=== PATIENT | female | born 1955 | race Hispanic/Latino ===

== ENCOUNTER 2018-06-30 06:07 | Day surgery (SDC) | payer BC ==
[2018-06-18 11:31] VITALS: BMI 21.9
[2018-06-30 06:32] VITALS: RESP 20
[2018-06-30] MEDS ORDERED: Propofol 10 mg/ml Inj (20 ML) ONE (07:04)
[2018-06-30] MEDS ORDERED: Phenylephrine 10 mg/ml Inj ONE (07:04)
[2018-06-30] MEDS ORDERED: Rocuronium 10 mg/ml (5 ml) ONE (07:04)
[2018-06-30] MEDS ORDERED: Lidocaine 4% (Laryng-O-Jet) Kit MM ONE (07:04)
[2018-06-30] MEDS ORDERED: Succinylcholine 200 mg/10 ml Inj IV ONE (07:04)
[2018-06-30] MEDS ORDERED: Midazolam 2 MG/2 ML VIAL ONE (07:04)
--- NOTE | 2018-06-30 07:12 | CP.SDSHP ---
Same Day Surgery H & P - History Proposed Procedure: Right shoulder arthroscopy, possible rotator cuff repair, acromioplasty, related procedures Pre-Op Diagnosis: Right shoulder full thickness supraspinatous tear, AC joint arthritis - Previous Medical/Surgical History Cardiac: Hypertension Pulmonary: Asthma Comments: GERD Previous Surgical History: tonsilectomy - Allergies Allergies: Allergies No Known Allergies Allergy (Verified 06/18/18 11:31) - Physical Exam Vital Signs: Vital Signs 06/30/18 06/30/18 06:30 06:33 Temperature 97.8 F Pulse Rate 75 75 Respiratory 20 Rate Blood Pressure 142/93 H O2 Sat by Pulse 100 Oximetry Mental Status: Alert & Oriented x3 Heart: WNL Lungs: WNL GI: WNL (medical and cardiology H&P and clearance on chart, reviewed) - {Optional Preform as Required} Ortho: Other (+radial pulse, sensation intact, limited ROM shoulder) Other Pertinent Findings: MRI on chart. full thickness anterior supraspinatues, mod tendinopathy of infraspinatous, intact biceps tendon, mod AC OA, downsloping distal acromion, bone spurs. [place] [employer] patient report reviewed, no CDS. Patient counseled on the risks of addiction, physical or psychological dependence, and overdose associated with opioid drugs and the danger of taking opioid drugs with alcohol and other central nervous system depressants, and cautioned patient on storage and disposal. - Impression Impression: 63F RHD with right shoulder RC tear after fallJanuary 2018 failed conservative mgmt and elected for arthroscopy Pt. Evaluated Today:Candidate for Anesthesia & Procedure: Yes - Date & Time Date: 06/30/18 Time: 07:13 Short Stay Discharge - Short Stay Discharge Admitting Diagnosis/Reason for Visit: M75.101/ M25.511/ M75.41/ Disposition: HOME/ ROUTINE
[2018-06-30] MEDS ORDERED: Ropivacaine 0.5% 30ML IV ONE (07:20)
[2018-06-30] MEDS ORDERED: EPINEPHrine 1:1000 Nasal Sol(30mL) ONE (07:42)
[2018-06-30] MEDS ORDERED: Bacitracin Ointment 30 GM TUBE ONE (07:43)
[2018-06-30] MEDS ORDERED: Lidocaine 2% w Epi 1:100,000 Inj IJ ONE (07:43)
[2018-06-30] MEDS ORDERED: Lactated Ringer's 1,000 ML IV ONE (08:00)
[2018-06-30] MEDS: Lidocaine 1% Inj (20ml) ONE ×2 (08:13→09:00)
[2018-06-30] MEDS ORDERED: Sodium Chloride 0.9% 10 ML IV ONE (08:34)
[2018-06-30] MEDS ORDERED: Dexamethasone 4 mg/1 ml ONE (08:37)
[2018-06-30] MEDS ORDERED: Neostigmine 1:1000 (1 mg/ml) Inj ONE (09:07)
[2018-06-30] MEDS ORDERED: Morphine 4 MG/ML VIAL IVP PRN (11:22)
[2018-06-30] MEDS ORDERED: Oxycodone/Acetaminophen 5/325 mg Tab PO PRN ×2 (11:22)
[2018-06-30] MEDS ORDERED: Dexamethasone 4 mg/1 ml IVP PRN (11:54)
[2018-06-30] MEDS ORDERED: HYDROmorphone 0.5 mg/0.5 ml ISec IVP PRN (11:54)
--- NOTE | 2018-06-30 11:57 | PCM.ANESB1 ---
Interscalene Block - Brachial Plexus Date of Procedure: 06/30/18 Anesthesiologist: Wilian Durant Pre-Procedure Diagnosis: R shoulder rotator cuff tear Post-Procedure Diagnosis: Same Procedure Performed: Interscalene Block of Brachial Plexus Right - Procedure Interscalene Block of Brachial Plexus: This procedure was explained to the patient that it is for post-operative pain management. Consent was obtained after a thorough discussion with the patient regarding the benefits and possible complications of local anesthetic block of the Brachial Plexus at the Interscalene area. The patient was brought to the Operating Room and standard monitors were applied. Time out was held with the circulating nurse to confirm the correct surgery and appropriate block. After applying Oxygen by nasal cannula and administering IV Sedation, the patient's head was gently rotated away from the Right operative shoulder and the anterior scalene groove was carefully palpated. The ultrasound transducer was then applied to the skin in the transverse plane and the brachial plexus was visualized lateral to the carotid artery and in between the anterior and middle scalene muscles. After identification,the anterior lateral portion of the neck was prepped with Chloroprep three times and Lidocaine 1% was injected subcutaneously for topical analgesia. At this point, a # 22 gauge Stimuplex 2 inches insulated needle was inserted into the interscalene groove and directed in a caudal and midline direction. The needle was inserted lateral to the ultrasound transducer in-plane towards the brachial plexus in a [id number] direction. Needle advancement was performed carefully under direct ultrasound visualization. Nerve stimulator was used and twitched of the affected extremity including the hand brachialis muscles, biceps and the deltoid was obtained at a current of 0.3MA. After repeated negative aspiration, 30cc of 0.5% ropivacaine was injected in 5cc aliquots. Under ultrasound guidance the local anesthetics were observed surrounding the roots of the brachial plexus. The needle was removed intact and sterile dressing was applied. The patient had stable vital signs, was conscious and in no apparent distress. The patient tolerated the interscalene block of the bracheal plexus well with stable vital signs and was prepared for subsequent surgery.
[2018-06-30] MEDS: Lactated Ringer's 1,000 ML IV SCH ×2 (13:01→13:15)
[2018-06-30 16:02] VITALS: BP 128/70; PULSE 85; TEMP 98.5; O2SAT 98
--- NOTE | 2018-06-30 16:19 | PCM.SURG1 ---
Surgeon's Initial Post Op Note - Surgeon's Notes Surgeon: Lilian Application Support Lead: DIANE Sotelo Type of Anesthesia: General Endo, Block Regional Anesthesia Administered By: DR Wilian Durant Pre-Operative Diagnosis: Rotator cufftear shoulder. A/C joint arthropathy Operative Findings: gr3 tear R rotator cuff. labral tear R shoulder. A/C joint arthropathy. subacromial impingement. adheisons/bursitis subacromial space Post-Operative Diagnosis: gr 3 tear R rotator cuff. tear glenoid labrum. biceps tendon proximal avulsion. A/C joint arthropathy. subacromial impingm ent. adhesions/buristis subacromial space Operation Performed: arthroscopic R Rotaor cuff repair. arthroscopic biceps tenodesis. arthroscopic labral repair (typoe 2 Slap). arthroscopic partial distal clavicuklectomy. arthroscopic acromioplasty. arthroscopic lysis of adhesiosns/ Specimen/Specimens Removed: synovium/bursa/adhesions /tendon/bone Estimated Blood Loss: EBL {In ML}: 25 Blood Products Given: N/A Drains Used: No Drains Post-Op Condition: Fair Date of Surgery/Procedure: 06/30/18 Time of Surgery/Procedure: 09:00 (time in roomk/anaesthesia indcution mtime 0752)
--- NOTE | 2018-07-04 09:59 | OP ---
PROCEDURE DATE: 06/30/2018 PREOPERATIVE DIAGNOSES: 1. Rotator cuff tear, right shoulder. 2. Acromioclavicular joint arthropathy. POSTOPERATIVE DIAGNOSES: 1. Grade 3 rotator cuff tear, right with tissue loss and retraction. 2. Labral tear, right shoulder extending anterior to posteriorly to the root of the biceps tendon. 3. Biceps tendon proximal avulsion. 4. Acromioclavicular joint arthritis. 5. Subacromial impingement. 6. Adhesions and bursitis in the subacromial space. POSTOPERATIVE DIAGNOSES: 1. Grade 3 tear of the right rotator cuff. 2. Tear of glenoid labrum, extending anterior to posterior root of the biceps tendon. 3. Biceps tendon proximal avulsion from the glenoid tubercle. 4. Acromioclavicular joint arthropathy. 5. Subacromial impingement. 6. Adhesions and bursitis, subacromial space. OPERATIONS PERFORMED: 1. Repair, grade 3 rotator cuff tear arthroscopically. 2. Repair, glenoid labrum. 3. Arthroscopic proximal biceps tenodesis. 4. Partial distal claviculectomy. 5. Arthroscopic acromioplasty. 6. Thorough and extensive arthroscopic debridement of the glenohumeral joint and arthroscopic debridement of subacromial space. SPECIMENS REMOVED: Synovium, bursa adhesions, tendon bone. BLOOD LOSS: 25 mL. BLOOD PRODUCTS: No blood products given. DRAINS: No drains. POSTOPERATIVE CONDITION: Fair. TIME OF SURGERY: 9 o'clock. TIME IN THE ROOM: 07:52. SURGEON: Abhilash Quintana MD FUSING MACHINE TENDER: KRISH Tillman, certified registered nursing first beater. 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 The patient has been refractory to conservative management consisting of ice, anti-inflammatory medication, intra-articular injection therapy. The possibility of mechanical failure, infection, thromboembolic disease of secondary or tertiary surgery is discussed. DESCRIPTION OF OPERATIVE PROCEDURE: After having obtained informed consent from the patient, after the satisfactory induction of general and regional anesthesia by Dr. Durant, after having identified the side, site, and procedure; a critical pause/time-out, the right upper extremity was prepped and free draped in usual fashion for arthroscopic shoulder surgery. The shoulder positioner was employed. The topographic anatomy of the shoulder was marked. The lateral aspect of the clavicle, posterior aspect of the spine of the scapula, lateral aspect of the acromion, coracoid process is marked as well. After having identified the side, site, and procedure, and critical pause/time-out, after the satisfactory induction of the anesthetic, the patient identified as Julissa Atkins in the modified saunders chair position. The joint is insufflated with 10 mL of 1% lidocaine without epinephrine. Using #11 blade, followed by spreading, followed by introduction of the blunt trocar, the arthroscope was introduced. Examination of the joint commences. Triangulation was accomplished using #18-gauge spinal needle, followed by #11 blade, followed by spreading introduction of blunt trocar. With the arthroscope posteriorly, the Wissinger raúl was introduced anteriorly, the cannula was placed with the arthroscope posteriorly, and extensive debridement of glenohumeral joint was accomplished. There was found to be evidence of a marked labral tear with evidence of avulsion as well as avulsion of the biceps tendon from the superior aspect of the glenoid. This having been accomplished with the arthroscope posteriorly, extensive debridement of the glenohumeral joint was accomplished using the arthroscopic shaver. With the arthroscope posteriorly, the interval between the labrum and the anterior aspect of the glenoid was debrided using a combination of 3.4 mm Dyonics suction punch and the arthroscopic shaver. With the arthroscope posteriorly, the labral avulsion was identified. With the arthroscope posteriorly, the instability of the biceps tendon anchor was identified. After having completed extensive debridement of the glenohumeral joint with the arthroscope posteriorly, the lasso was placed through the anterior cannula. This having been accomplished, the nitinol wire was brought out anteriorly. The FiberTape was placed anteriorly and brought out anteriorly. This having been accomplished, the anterior aspect of the glenoid was roughened and drilling was accomplished at the 1 o'clock face on the glenoid and the PushLock anchor was introduced. Secondary repair further distally was accomplished as well to repair the SLAP lesion of the glenohumeral joint. This having been accomplished, there was found to be evidence of biceps tendon avulsion. At the superior aspect of the biceps tendon, the nitinol wire was placed in the area of the supraglenoid tubercle. It was brought out, the FiberTape was loaded. Drilling was accomplished at approximately 11:30 to 12 position. Drilling was accomplished, PushLock anchor was loaded, and it was introduced. With the arthroscope posteriorly, the intra-articular biceps tenodesis was accomplished using the PushLock anchor. This having been accomplished, the anterior aspect of the glenoid having been repaired and the glenoid labral tear having been repaired. Extensive debridement of glenohumeral joint was completed. At this point in time, with the upper extremity in dependency, the subacromial space was entered, triangulation was accomplished using #18-gauge spinal needle, followed by #11 blade, followed by spreading. With the arthroscope posteriorly, extensive debridement of the subacromial space was accomplished. The undersurface of the acromion was identified. There was found to be a grade 3 tear of the rotator cuff with retraction with tissue loss. At this point in time, extensive debridement of the subacromial space was accomplished using the arthroscopic shaver. With the arthroscope posteriorly, the rotator cuff was grasped, and with the arm in abduction and rotation, it was brought anteriorly. This having been accomplished in the area of the critical zone of Codman with the remnant of the rotator cuff was developed, and at this point in time, using the modified V-type of technique, the Passport was placed in one of the portals with the arthroscope posteriorly. The PushLock anchor was introduced into the humeral head. With the arm in abduction and internal rotation, the absorbable peak anchor was introduced, and this having been accomplished with the arthroscope posteriorly with the peak anchor introduced, the rotator cuff was repaired. Secondary row sutures were placed posteriorly and a second anchor was employed as well. This having been accomplished, the V aspect of the rotator cuff was closed using a knot pusher with a knot superiorly. This having been accomplished, the subacromial space was debrided with the arthroscope posteriorly with the arm in dependency, a partial acromioplasty was accomplished. Extensive debridement of the subacromial space was accomplished using the arthroscopic shaver and the ArthroCare wand. At this point, with the arthroscope posteriorly, a partial distal claviculectomy was accomplished using arthroscopic bur. With the arthroscope posteriorly, a partial distal claviculectomy was accomplished. With the arthroscope in the mid lateral portal with the bur anteriorly, a partial distal claviculectomy was accomplished. With the arthroscope posteriorly, a partial acromioplasty having been accomplished, partial distal claviculectomy was accomplished as well. With the arthroscope posteriorly, thorough debridement of the glenohumeral joint and the subacromial space was accomplished. With the arthroscope posteriorly, a partial acromioplasty having been accomplished, partial distal claviculectomy was accomplished, and this having been accomplished, the wound was thoroughly irrigated. Partial acromioplasty having been accomplished, extensive debridement of the subacromial space was accomplished as well and this having been accomplished, the wound was thoroughly irrigated. Closures in layers with interrupted Vicryl and nylon. Compression dressing and shoulder abduction splint was applied. COMPLICATIONS: No complications. Abhilash Quintana MD
== END 2018-06-30 14:20 | disposition home or self-care (01) ==
LOC: H.OPSURG 06:07
PROVIDERS: ATTEND Orthopaedic Surgery
DX: M75.101 Unspecified rotator cuff tear or rupture of right shoulder, not specified as traumatic (principal); M75.41 Impingement syndrome of right shoulder; I10 Essential (primary) hypertension; J45.909 Unspecified asthma, uncomplicated; K21.9 Gastro-esophageal reflux disease without esophagitis; M19.011 Primary osteoarthritis, right shoulder
CPT/HCPCS: 29807; 29826; 29827; 88304; 88305; C1713; J0330; J0690; J1100; J2001; J2250; J2370; J2405; J2704; J2710; J2765; J3010; J7030; J7120